=== PATIENT | male | born 1990 | race African-American/Black ===

== ENCOUNTER 2018-11-08 09:24 | Emergency (ER) | payer MEDICAID ==
[~2018-11-08] VITALS: Ht 172.7 cm; Wt 68.0 kg
[2018-11-08] MEDS ORDERED: IBUPROFEN 600MG TABLET PO ONE (10:00)
[2018-11-08 10:03] VITALS: BP 113/69
== END 2018-11-08 10:36 | disposition home or self-care (01) ==
LOC: ER 09:24
DX: M25.572 Pain in left ankle and joints of left foot (principal); Y93.67 Activity, basketball
CPT/HCPCS: 73610; 99283

== ENCOUNTER 2018-12-05 08:15 | Emergency (ER) | payer MEDICAID ==
[~2018-12-05] VITALS: Ht 172.7 cm; Wt 70.0 kg
[2018-12-05 10:25] VITALS: BP 120/77
== END 2018-12-05 10:27 | disposition home or self-care (01) ==
LOC: ER 08:15
DX: H83.8X9 Other specified diseases of inner ear, unspecified ear (principal); F12.10 Cannabis abuse, uncomplicated; Z98.890 Other specified postprocedural states
CPT/HCPCS: 99281

== ENCOUNTER 2025-03-13 09:17 | Emergency (ER) | payer OTHER, MEDICAID ==
[~2025-03-13] VITALS: Ht 175.3 cm; Wt 85.0 kg
[2025-03-13 09:26] VITALS: O2SAT 95
[2025-03-13 12:16] VITALS: TEMP 36.8
[2025-03-13] MEDS: IBUPROFEN 600MG TABLET PO ONE (15:11)
[2025-03-13] MEDS ORDERED: IBUP-1455 MT (16:14)
[2025-03-13] MEDS ORDERED: LIDO-53 TP (16:14)
[2025-03-13] MEDS: LIDOCAINE 5% PATCH TOP SCH (16:59)
[2025-03-13 17:04] VITALS: BP 125/80; PULSE 70; RESP 17; O2SAT 98
== END 2025-03-13 17:05 | disposition home or self-care (01) ==
LOC: ER 09:17
DX: S50.02XA Contusion of left elbow, initial encounter (principal); M79.642 Pain in left hand; M25.562 Pain in left knee; F12.90 Cannabis use, unspecified, uncomplicated; Z98.890 Other specified postprocedural states; V89.2XXA Person injured in unspecified motor-vehicle accident, traffic, initial encounter; Y93.89 Activity, other specified; Y92.89 Other specified places as the place of occurrence of the external cause; Y99.8 Other external cause status
CPT/HCPCS: 99284; 73080; 73130; 73562; 29125; A6449